=== PATIENT | female | born 1945 | race Caucasian/White ===

== ENCOUNTER 2016-05-29 13:35 | Outpatient (CLI) | payer MEDICARE, OTHER | END 2016-05-29 13:36 | disposition home or self-care (01) | DX: R05 Cough (principal) ==

== ENCOUNTER 2016-08-17 13:14 | Outpatient (CLI) | payer MEDICARE, OTHER | END 2016-08-17 13:15 | disposition home or self-care (01) | LOC: RT 13:14 | PROVIDERS: ATTEND Internal Medicine | DX: J45.909 Unspecified asthma, uncomplicated (principal) | CPT/HCPCS: 94010; 94664 ==

== ENCOUNTER 2017-11-25 11:47 | Outpatient (CLI) | payer MEDICARE, OTHER ==
--- NOTE | 2017-11-25 14:24 | XRAY Report ---
Reason: SHORTNESS OF BREATH Procedure Date: 11/25/2017 Accession Number: [id number] / [id number] Procedure: XR - Chest 2 View X-Ray CPT Code: 16532 FULL RESULT: EXAM: CHEST RADIOGRAPHY EXAM DATE: 11/25/2017 01:38 PM. CLINICAL HISTORY: Increasing shortness of breath with a history of smoking. COMPARISON: Chest 2 view PA/lat 05/26/2014. TECHNIQUE: 2 views. FINDINGS: Lungs/Pleura: No focal opacities evident. No pleural effusion. No pneumothorax. Increased lung volumes. Mediastinum: Heart and mediastinal contours are unremarkable. Other: None. IMPRESSION: No acute cardiopulmonary abnormality. Increased lung volumes with flattening of diaphragms which can be seen with COPD. RADIA
== END 2017-11-25 11:48 | disposition home or self-care (01) ==
LOC: DI 11:47
PROVIDERS: ATTEND Nurse Practitioner Family
DX: R06.02 Shortness of breath (principal); I35.1 Nonrheumatic aortic (valve) insufficiency
CPT/HCPCS: 71046; 93306

== ENCOUNTER 2018-10-29 | Outpatient (CLI) | payer MEDICARE, OTHER | END 2018-10-29 12:13 | disposition home or self-care (01) | DX: Z79.899 Other long term (current) drug therapy (principal) | CPT/HCPCS: 36415; 80048 ==

== ENCOUNTER 2018-11-23 12:43 | Outpatient (CLI) | payer MEDICARE, OTHER ==
[2018-11-23 17:46] LABS: CALCIUM 9.2 mg/dL (8.5-10.3); CREATININE 0.8 mg/dL (0.4-1.0)
== END 2018-11-23 12:44 | disposition home or self-care (01) ==
LOC: LAB.S 12:43
PROVIDERS: ATTEND Internal Medicine Cardiovascular Disease
DX: I35.1 Nonrheumatic aortic (valve) insufficiency (principal); I10 Essential (primary) hypertension
CPT/HCPCS: 36415; 80048

== ENCOUNTER 2019-03-12 11:43 | Observation (INO) | payer MEDICARE, OTHER ==
[2019-03-12 12:09] LABS: BASOPHILS % (AUTO) 0.4 %; EOSINOPHILS # (AUTO) 0.1 10^3/uL (0.0-0.7); EOSINOPHILS % (AUTO) 1.6 %; HGB - HEMOGLOBIN 11.5 g/dL (12.0-16.0); LYMPHOCYTES # (AUTO) 2.1 10^3/uL (1.5-3.5); LYMPHOCYTES % (AUTO) 27.5 %; MEAN CORPUSCULAR HEMOGLOBIN 29.6 pg (27.0-31.0); MEAN CORPUSCULAR HGB CONC 32.4 g/dL (32.0-36.0); MEAN CORPUSCULAR VOLUME 91.3 fL (81.0-99.0); MEAN PLATELET VOLUME 9.5 fL (7.9-10.8); MONOCYTES # (AUTO) 0.8 10^3/uL (0.0-1.0); MONOCYTES % (AUTO) 10.3 %; NEUTROPHILS # (AUTO) 4.5 10^3/uL (1.5-6.6); NEUTROPHILS % (AUTO) 59.9 %; PLT - PLATELET COUNT 208 10^3/uL (130-450); RED BLOOD COUNT 3.89 10^6/uL (4.20-5.40); RED CELL DISTRIBUTION WIDTH 13.2 % (12.0-15.0); WHITE BLOOD COUNT 7.5 x10^3/uL (4.8-10.8)
[2019-03-12 12:22] LABS: ALBUMIN 4.3 g/dL (3.2-5.5); ALBUMIN/GLOBULIN RATIO 1.5 (1.0-2.2); BILIRUBIN,TOTAL 0.6 mg/dL (0.2-1.0); CALCIUM 9.3 mg/dL (8.5-10.3); TOTAL PROTEIN 7.1 g/dL (6.7-8.2)
--- NOTE | 2019-03-12 12:23 | CT Report ---
Reason: expressive aphasia Procedure Date: 03/12/2019 Accession Number: [id number] / [id number] Procedure: CT - Head W/O Stroke Protocol CPT Code: Final Report FULL RESULT: EXAM: CT HEAD EXAM DATE: 03/12/2019 12:05 PM. CLINICAL HISTORY: Expressive aphasia. COMPARISON: None. TECHNIQUE: Multiaxial CT images were obtained from the foramen magnum to the vertex. Reformats: Sagittal and coronal. IV contrast: None. In accordance with CT protocol optimization, one or more of the following dose reduction techniques were utilized for this exam: automated exposure control, adjustment of mA and/or KV based on patient size, or use of iterative reconstructive technique. FINDINGS: Parenchyma: No intraparenchymal hemorrhage. No evidence of mass, midline shift, or CT findings of acute infarction. Anguiano-white differentiation is distinct. Extraaxial Spaces: Normal for age. No subdural or epidural collections identified. Ventricles: Normal in size and position. Sinuses and Orbits: Imaged paranasal sinuses, orbits, and mastoids show no significant abnormality. Bones: No evidence of fracture or calvarial defect. Other: None. IMPRESSION: Normal head CT. RADIA The critical test notification system was initiated by Dr. Ladarius Harris at 12:19 PM on 03/12/2019. The above critical test findings were discussed with Tejinder Vernon by Dr. Ladarius Harris at 12:20 PM on 03/12/2019.
--- NOTE | 2019-03-12 12:25 | ED Physician Documentation ---
PD HPI FOCAL NEURO - Stated complaint Stated Complaint: POSSIBLE STROKE - Chief complaint Chief Complaint: Neuro - History obtained from History obtained from: Patient, Family - History of Present Illness Timing - onset: How many hours ago (2.5) Timing - duration: Hours (2.5) Timing - details: Gradual onset Severity of deficit: Mild Weakness: No: Face, Arm, Hand, Leg, Foot, Right, Left Numbness: Face (states entire face was numb today), Arm, Leg, Left Associated symptoms: Headache (states had a sharp headache earlier today.). No: Nausea / vomiting, Seizure, Syncope, Fall, Head injury, Chest pain, Neck pain, Back pain, Fever Baseline status: positive: A&OX3, ambulatory, indep Similar symptoms before: Diagnosis (states 2 TIA's in the past) Recently seen: Clinic (seen in clinic this am) - Additional information Additional information: took [employer] Review of Systems Ten Systems: 10 systems reviewed and negative Constitutional: denies: Fever, Chills Cardiac: denies: Chest pain / pressure Respiratory: denies: Cough GI: denies: Abdominal Pain, Nausea, Vomiting, Diarrhea Skin: denies: Rash Musculoskeletal: denies: Neck pain, Back pain Neurologic: reports: Confused (states confused earlier.) PD PAST MEDICAL HISTORY - Past Medical History Past Medical History: Yes Cardiovascular: Hypertension Neuro: TIA Musculoskeletal: Chronic back pain - Present Medications Home Medications: Ambulatory Orders Medication Instructions Recorded Confirmed Acetaminophen 500 mg PO TID PRN 03/12/19 03/12/19 Albuterol Sulfate [Albuterol 1 - 2 puffs PO Q4HR PRN 03/12/19 03/12/19 Sulfate Hfa] Citalopram [CeleXA] 20 mg PO DAILY 03/12/19 03/12/19 Hydrochlorothiazide 12.5 mg PO DAILY 03/12/19 03/12/19 Lisinopril 20 mg PO QPM 03/12/19 03/12/19 - Allergies Allergies/Adverse Reactions: Allergies Allergy/AdvReac Type Severity Reaction Status Date / Time hydrocodone Allergy Hives Verified 03/12/19 11:54 - Living Situation Living Situation: reports: With family Living Arrangement: reports: At home - Family History Family history: reports: Non contributory PD ED PE NORMAL - Vitals Vital signs reviewed: Yes - General General: Alert and oriented X 3, No acute distress, Well developed/nourished - HEENT HEENT: Atraumatic, PERRL, Ears normal, Moist mucous membranes - Neck Neck: Supple, no meningeal sign - Cardiac Cardiac: RRR, Strong equal pulses - Respiratory Respiratory: No respiratory distress, Clear bilaterally - Abdomen Abdomen: Soft, Non tender, Non distended - Back Back: No spinal TTP - Derm Derm: Warm and dry - Extremities Extremities: No edema - Neuro Neuro: Alert and oriented X 3, No motor deficit, Other (Mild decreased sensation on the left arm, left leg and left half of the face. Cranial nerves other than baker intact. Mild expressive aphasia) Eye Opening: Spontaneous Motor: Obeys Commands Verbal: Oriented GCS Score: 15 - Psych Psych: Normal mood, Normal affect NIHSS - Time Time: 12:01 - Level of Consciousness Level of consciousness: (0) Alert, Keenly responsive LOC Questions: (0) Answers both Q's correct LOC Commands: (0) Performs both correctly - Gaze Best Gaze: (0) Normal - Visual Visual: (0) No loss - Facial Palsy Facial Palsy: (0) Normal, symmetrical movement - Motor Arms (both separate) Motor Arm (right): (0) No drift Motor Arm (left): (0) No drift - Motor Legs (both separate) Motor Leg (right): (0) No drift Motor Leg (left): (0) No drift - Limb Ataxia Limb Ataxia: (0) Absent - Sensory Sensory: (1) [id number] loss - Best Language Best Language: (1) [id number] - Dysarthria Dysarthria: (0) Normal - Extinction and Inattention (formally neg Extinction and inattention: (0) No abnormality - Total Score/Results Total Score/Result: 2 Results - Vitals Vitals: Vital Signs - 24 hr 03/12/19 03/12/19 03/12/19 11:54 11:57 12:34 Temperature 36.8 C Heart Rate 74 75 72 Respiratory 24 14 15 Rate Blood Pressure 196/84 H 206/78 H 178/68 H O2 Saturation 98 100 99 Oxygen O2 Source Room air - EKG (time done) 1157 Rate: Rate (enter#) (70) Rhythm: NSR Mimbres: Normal Intervals: Normal IN QRS: Normal Ischemia: Normal ST segments - Labs Labs: Laboratory Tests 03/12/19 03/12/19 11:50 11:50 WBC 7.5 RBC 3.89 L Hgb 11.5 L Hct 35.5 L MCV 91.3 MCH 29.6 MCHC 32.4 RDW 13.2 Plt Count 208 MPV 9.5 Neut # (Auto) 4.5 Lymph # (Auto) 2.1 Emanuel # (Auto) 0.8 Eos # (Auto) 0.1 Baso # (Auto) 0.0 Absolute Nucleated RBC 0.00 Nucleated RBC % 0.0 Sodium 127 L Potassium 4.0 Chloride 91 L Carbon Dioxide 27 Anion Gap 9.0 BUN 21 H Creatinine 1.0 Estimated GFR (MDRD) 54 L Glucose 99 Calcium 9.3 Total Bilirubin 0.6 AST 29 ALT 36 Alkaline Phosphatase 55 Total Protein 7.1 Albumin 4.3 Globulin 2.8 Albumin/Globulin Ratio 1.5 Lipase 46 - Rads (name of study) head CT Radiology: Prelim report reviewed, EMP read contemporaneously, See rad report (No acute intracranial abnormality) PD MEDICAL DECISION MAKING - ED course Complexity details: reviewed results, re-evaluated patient, considered differential, d/w patient, d/w family, d/w farm service consultant ED course: 73-year-old female presents to the emergency department what appears to be a TIA. Symptoms resolved in the emergency department. No acute findings on head CT or laboratory testing. Discussed the case with Dr. Guerrero, hospitalist who accepts. This document was made in part using voice recognition software. While efforts are made to proofread this document, sound alike and grammatical errors may occur. - TPA CVA checklist Inclusion crititeria: positive: Sig neuro deficit, CT no bleed, Onset know < 4.5 hr Relative contraindications: positive: Too mild, Rapid improvement Departure - Departure Disposition: ED Place in Observation Clinical Impression: TIA (transient ischemic attack), Hyponatremia Hypertension Qualifiers: Hypertension type: unspecified Qualified Code(s): I10 - Essential (primary) hypertension Condition: Stable Discharge Date/Time: 03/12/19 13:37
[2019-03-12] MEDS ORDERED: SODIUM CHLORIDE 0.9% 1,000 ML IV ONE ×2 (12:32)
[2019-03-12] MEDS ORDERED: LABETALOL 20 MG/4 ML SYRINGE IVP STA (12:33)
[2019-03-12] MEDS ORDERED: ONDANSETRON 4 MG/2 ML VIAL IVP PRN (13:04)
[2019-03-12] MEDS ORDERED: SODIUM CHLORIDE FLUSH 0.9% 10 ML SYRINGE IVP PRN (13:04)
[2019-03-12 13:16] LABS: BILIRUBIN,URINE NEGATIVE (NEGATIVE); GLUCOSE, URINE (UA) NEGATIVE (NEGATIVE); KETONES,URINE (UA) NEGATIVE (NEGATIVE); LEUKOCYTE ESTERASE, URINE NEGATIVE (NEGATIVE); NITRITE,URINE NEGATIVE (NEGATIVE); OCCULT BLOOD,URINE TRACE-INTA (NEGATIVE); PH,URINE 6.5 PH (5.0-7.5); PROTEIN,URINE NEGATIVE (NEGATIVE); UROBILINOGEN,URINE 0.2 (NORMAL) E.U./dL (NORMAL)
[2019-03-12 13:24] LABS: CLARITY,URINE CLEAR (CLEAR)
[2019-03-12] MEDS ORDERED: hydrALAZINE INJ 20 MG/ML VIAL IVP PRN (13:39)
[2019-03-12] MEDS ORDERED: ALBUTEROL NEB 2.5 MG/3 ML INH PRN (13:42)
[2019-03-12] MEDS: SODIUM CHLORIDE 0.9% 1,000 ML IV SCH (14:11)
--- NOTE | 2019-03-12 15:14 | HISTORY & PHYSICAL EXAMINATION ---
Chief Complaint - Chief Complaint Chief Complaint: TIA History of Present Illness - History of Present Illness HPI Comment/Other: Ms. Echeverria is a 73-yrs old female with a PMH significant for Hypertension, COPD, Sleep apnea, TIA, Migraines, Seizure disorder, Incontinence, Frequency, Depression, Anxiety, Osteoarthritis, Fatigue, Chronic back pain, who present ER complain of numbness on whole face, and headache, and slurred speech. Pt report she's face, lips started to have numbness around 0945 today morning, and report she couldn't find the right words, people, places,names, then she had a bad headache. then her gave a baby aspirin. She report her symptoms remained about 30 minutes then these symptoms waned away. She denies other focal n eurological deficits. she denies unilateral extremities weakness, facial drip, vision change. she denies chest pain, fever, chill, shortness of breath. pt report she had twice of TIA before which happened on her early 50 yrs and 60 yrs old respectively. Pt's CT of head is unremarkable. Route lab test in ER reveals sodium at 127. pt report she took home meds HCTZ. pt is admitted for TIA History - Past Medical History Cardiovascular: reports: Hypertension Respiratory: reports: COPD, Sleep apnea Neuro: reports: TIA, Migraines, Seizure disorder Endocrine/Autoimmune: reports: None : reports: Incontinence, Frequency Psych: reports: Depression, Anxiety Musculoskeletal: reports: Osteoarthritis, Fatigue, Chronic back pain Derm: reports: None - Past Surgical History Ortho: reports: Knee replacement - Family & Social History Family History: Mother: , Cancer, Father: , COPD/Emphysema Family History Comment/Other: pt report her mother from pancreatic cancer. her father from heart attack and lung disease. she had one child who is health Living arrangement: At home Living Situation: With family Social History Notes: she report she quit cigarette smoking about 20 yrs ago. she denies any issue for alcohol and drug. 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 she is living at [facility]. - POLST POLST Status: Full Code Meds/Allgy - Home Medications Home Medications: Ambulatory Orders Medication Instructions Recorded Confirmed Albuterol Sulfate [Albuterol 1 - 2 puffs PO Q4HR PRN 03/12/19 03/12/19 Sulfate Hfa] Citalopram [CeleXA] 20 mg PO DAILY 03/12/19 03/12/19 Hydrochlorothiazide 12.5 mg PO DAILY 03/12/19 03/12/19 Lisinopril 20 mg PO QPM 03/12/19 03/12/19 - Allergies Allergies/Adverse Reactions: Allergies Allergy/AdvReac Type Severity Reaction Status Date / Time hydrocodone Allergy Hives Verified 03/12/19 11:54 Review of Systems - Constitutional Constitutional: denies: Fatigue, Fever, Chills, Malaise, Weakness, Poor appetite, Diaphoresis, Night sweats - Eyes Eyes: denies: Pain, Irritation, Amaurosis, Blurred vision, Spots in vision, Field loss, Vision loss, Dipolpia - Ears, Nose & Throat Ears, Nose & Throat: denies: Ear pain, Hearing loss, Hearing aids, Tinnitus, Vertigo, Nasal pain, Nasal discharge, Nosebleeds, Nasal obstruction, Nasal congestion, Postnasal drainage, Dentures, Sore throat, Hoarseness, Mouth lesions, Bleeding gums - Cardiovascular Cariovascular: denies: Irregular heart rate, Palpitations, Chest pain, Edema, Lightheadedness, Syncope, Exertional dyspnea, Decr. exercise tolerance - Respiratory Respiratory: denies: Cough, Sputum production, Wheezing, Snoring, Hemoptysis, Orthopnea, SOB at rest, SOB with exertion - Gastrointestinal Gastrointestinal: denies: Abdominal pain, Abdominal distention, Constipation, Diarrhea, Change in bowel habits, Rectal bleeding, Black stools, Bloody stools, Nausea, Vomiting, Bile emesis, Nikolas blood emesis, Coffee grounds emesis, Refl ux/heartburn - Genitourinary Genitourinary: denies: Dysuria, Frequency, Urgency, Hematuria, Incontinence, Flank pain, Nocturia, Urethral discharge - Musculoskeletal Musculoskeletal: denies: Muscle pain, Back pain, Muscle aches, Stiffness, Limited range of motion, Muscle weakness, Gout, Joint pain - Integumentary Integumentary: denies: Rash, Pruritis, Lesions, Dryness, Lumps, Pigment changes, Nail changes - Neurological Neurological: reports: General weakness, Headache, Numbness, Memory problems. denies: Focal weakness, Dizziness, Pre-existing deficit, Abnormal gait, Seizures, Incoordination, Slurred speech - Psychiatric Psychiatric: denies: Depression, Anxiety, Suicidal, Delusions, Hallucinations, Homicidal - Endocrine Endocrine: denies: Polyuria, Polydypsia, Polyphagia, Intolerance to cold - Hematologic/Lymphatic Hematologic/Lymphatic: denies: Anemia, Bruising, Petechiae, Blood clots, Lymphadenopathy, Bleeding tendencies Exam - Vital Signs Reviewed Vital Signs: Yes Vital Signs: Vital Signs x48h Temp Pulse Pulse Resp BP BP Pulse Ox 03/12/19 13:50 36.4 C L 76 16 177/63 H 100 03/12/19 13:35 73 18 163/69 H 100 03/12/19 13:11 75 20 175/70 H 03/12/19 12:34 72 15 178/68 H 99 03/12/19 11:57 75 14 206/78 H 100 03/12/19 11:54 36.8 C 74 24 196/84 H 98 - Physical Exam General Appearance: positive: No acute distress, Alert. negative: Lethargic Eyes Bilateral: positive: Normal inspection, PERRL, EOMI. negative: No lid inflammation ENT: positive: ENT inspection nml, Pharynx nml, No signs of dehydration. negative: Purulent nasal drainage Neck: positive: Nml inspection, Thyroid nml, No JVD, Trachea midline. negative: Thyromegaly, Lymphadenopathy (R), Lymphadenopathy (L), Stiff neck, Tracheal deviation Respiratory: positive: Chest non-tender, No respiratory distress, Breath sounds nml. negative: Wheezes, Rales, Rhonchi Cardiovascular: positive: Regular rate & rhythm, No gallop, Systolic murmur. negative: Irregularly irregular, Extrasystoles, Tachycardia, Bradycardia, JVD present, Diastolic murmur Peripheral Pulses: positive: 2+ Abdomen: positive: Non-tender, No organomegaly, Nml bowel sounds, No distention. negative: Tenderness, Guarding, Rebound Back: positive: Nml inspection. negative: CVA tenderness (R), CVA tenderness (L) Skin: positive: Color nml, No rash, Warm, Dry. negative: Cyanosis, Diaphoresis, Pallor Extremities: positive: Non-tender, Full ROM, Nml appearance. negative: Calf tenderness, Zeynep's sign/cords Neurologic/Psychiatric: positive: Oriented x3, Motor nml, Sensation nml. negative: Weakness, Sensory loss, Facial droop, Slurred/abnml speech, Depressed mood/affect Sepsis Event Note (H) - Evaluation Current Stage of Sepsis: Ruled out Conclusion/Plan - Problem List (1) TIA (transient ischemic attack) Conclusion/Plan: pt had twice TIA before. today she report she present these numbness, difficult to find words and headache, concern of TIA. CT of head is unremarkable. order MRI, ECHO, and US of carotid order lipid panel. pt took aspirin at home, start lower dosage Aspirin. since pt's symptoms are totally resolved. PT/TO did not order now neuro check (2) Hyponatremia Conclusion/Plan: pt's Na is 127 now. it is likely from pt's home HCTZ side effect. hold HCTZ start IVF of NS, lab monitor (3) Hypertension Conclusion/Plan: pt has hx of HTN, she took HCTZ and Lisinopril. hold home BP meds for 24 hours since pt has TIA. add hydralazine PRN Qualifiers: Hypertension type: unspecified Qualified Code(s): I10 - Essential (primary) hypertension (4) History of COPD Conclusion/Plan: pt has no respiratory distress now. pt has INH of albuterol at home. PRN of albuterol (5) Depression Conclusion/Plan: stable. resume home meds Celexa (6) Full code status Conclusion/Plan: pt request full code status - Lab Results Fish Bones: 03/12/19 11:50 03/12/19 11:50 Core Measures - Anticipated LOS I expect patient to be DC'd or transferred within 96 hours.: Yes - DVT/VTE - Prophylaxis VTE/DVT Device ordered at admit?: Yes VTE/DVT Prophylaxis med ordered at admit?: Yes
[2019-03-12] MEDS ORDERED: LEVALBUTEROL 1.25 MG/3 ML NEB INH PRN (15:23)
[2019-03-12] MEDS ORDERED: ASPIRIN CHEW 81 MG TABLET PO SCH (15:23)
[2019-03-12] MEDS: SODIUM CHLORIDE FLUSH 0.9% 10 ML SYRINGE IVP SCH (16:26)
--- NOTE | 2019-03-12 16:33 | PHARMACY PROGRESS NOTE ---
- Best Possible Medication History Admit Date and Time: 03/12/19 2708 Processed by: Pharmacy Medication History completed: Yes Patient Interview: Completed Secondary Source(s): Spouse/Significant other, [facility] As the person ultimately responsible for medication therapy, providers are able to order a medication from an existing home medication list in [facility] via the "Reconcile Routine" prior to Confirmation of that medication by fire support man. Such practice is discouraged except when the physician, in their clinical judgment, deems that a medical need exists for a medication without regard to pr evious use.
[2019-03-12] MEDS: ACETAMINOPHEN 325 MG TABLET PO PRN (20:21)
--- NOTE | 2019-03-12 20:27 | MRI Report ---
Reason: TIA/CVA. Expressive aphasia. Left side numbness. Procedure Date: 03/12/2019 Accession Number: [id number] / [id number] Procedure: MRI - Brain W/O CPT Code: Final Report FULL RESULT: EXAM: MRI BRAIN WITHOUT CONTRAST EXAM DATE: 03/12/2019 07:46 PM. CLINICAL HISTORY: 73-year-old woman with left-sided numbness and expressive aphasia. COMPARISON: None. TECHNIQUE: Multiplanar, multisequence T1-weighted and fluid-sensitive MR sequences of the brain were performed. Sequences optimized for routine evaluation. Other: None. IV Contrast: None. FINDINGS: Parenchyma: No evidence of acute infarct on diffusion weighted sequence. The parenchyma demonstrates minimal burden of nonspecific FLAIR hyperintensities in the deep cerebral and periventricular white matter, less than commonly seen in this age group. No evidence of prior hemorrhage on susceptibility weighted sequence. Pituitary: Unremarkable. Ventricles and Extra-axial Spaces: Ventricles are symmetric and normal in size for age. Extra-axial spaces are unremarkable. Orbits: Unremarkable. Sinuses: Paranasal sinuses and mastoid air cells are clear. Major Vascular Flow Voids: Intact. IMPRESSION: 1. No acute intracranial abnormality. Specifically, no evidence of acute infarct, hemorrhage, or mass lesion. RADIA
[2019-03-12] MEDS: traMADol 50 MG TABLET PO PRN (22:17)
--- NOTE | 2019-03-12 23:02 | Ultrasound Report ---
Reason: TIA. Procedure Date: 03/12/2019 Accession Number: [id number] / [id number] Procedure: US - Carotid Doppler Complete CPT Code: Final Report FULL RESULT: EXAM: BILATERAL CAROTID AND VERTEBRAL ARTERY DUPLEX DOPPLER ULTRASOUND: EXAM DATE: 03/12/2019 09:26 PM CLINICAL HISTORY: Transient ischemic attack. COMPARISON: None. TECHNIQUE: Grayscale imaging, color Doppler, and duplex spectral Doppler were used to evaluate the carotid and vertebral arteries bilaterally. Static images were obtained. FINDINGS: Borderline mildly elevated velocities in the proximal and mid right internal carotid artery compatible with 50-69% stenosis. Bilateral areas of irregular calcified plaque in the common carotid and internal carotid arteries, right more than left. Normal antegrade flow is present in bilateral vertebral arteries. VELOCITIES (cm/sec): Right CCA mid: PSV 87 cm/sec CCA dist: PSV 89 cm/sec ICA prox: PSV 125 cm/sec, EDV 23 cm/sec ICA mid: PSV 136 cm/sec, EDV 30 cm/sec ICA dist: PSV 73 cm/sec, EDV 18 cm/sec ECA: PSV 85 cm/sec Vert: PSV 75 cm/sec ICA/CCA: 1.5 Left CCA mid: PSV 76 cm/sec CCA dist: PSV 85 cm/sec ICA prox: PSV 71 cm/sec, EDV 14 cm/sec ICA mid: PSV 115 cm/sec, EDV 23 cm/sec ICA dist: PSV 56 cm/sec, EDV 16 cm/sec ECA: PSV 119 cm/sec Vert: PSV 85 cm/sec ICA/CCA: 1.4 ICA diameter stenosis: Right: 50-69% by velocity and <70% by NASCET criteria. Left: <50% by velocity and <70% by NASCET criteria. IMPRESSION: 1. Mild bilateral carotid artery plaquing, right more than left. 2. Mildly elevated velocities in the proximal and mid right internal carotid artery compatible with 50-69% stenoses. 3. In the left carotid artery there are no elevated carotid artery velocities to suggest hemodynamically significant stenosis. 4. Normal antegrade flow is present in bilateral vertebral arteries. General Recommendations: Stenosis =50% ICA - Follow-up ultrasound 6-12 months Stenosis <50% ICA - High Risk Patient with plaque - Follow-up ultrasound 1-2 years Normal Study but High Risk Patient - Follow-up ultrasound 3-5 years Management recommendations and diagnostic criteria are based on current IAC endorsed standards in Carotid Artery Stenosis: Grayscale and Doppler Ultrasound Diagnosis. Validated velocity measurements with angiographic measurements and velocity criteria are extrapolated from diameter data as defined by the Society of Radiologists in Ultrasound Consensus Conference Radiology 2003; 229;340-346. RADIA
[2019-03-13] MEDS: SODIUM CHLORIDE 0.9% 1,000 ML IV SCH ×2 (00:40→10:11)
[2019-03-13] MEDS: SODIUM CHLORIDE FLUSH 0.9% 10 ML SYRINGE IVP SCH ×2 (00:40→08:21)
[2019-03-13] MEDS: traMADol 50 MG TABLET PO PRN ×2 (04:54→10:11)
[2019-03-13 05:05] LABS: BASOPHILS % (AUTO) 0.5 %; EOSINOPHILS # (AUTO) 0.2 10^3/uL (0.0-0.7); EOSINOPHILS % (AUTO) 2.7 %; HGB - HEMOGLOBIN 10.7 g/dL (12.0-16.0); LYMPHOCYTES # (AUTO) 1.5 10^3/uL (1.5-3.5); LYMPHOCYTES % (AUTO) 27.1 %; MEAN CORPUSCULAR HEMOGLOBIN 30.1 pg (27.0-31.0); MEAN CORPUSCULAR HGB CONC 32.5 g/dL (32.0-36.0); MEAN CORPUSCULAR VOLUME 92.4 fL (81.0-99.0); MEAN PLATELET VOLUME 9.5 fL (7.9-10.8); MONOCYTES # (AUTO) 0.6 10^3/uL (0.0-1.0); MONOCYTES % (AUTO) 10.6 %; NEUTROPHILS # (AUTO) 3.3 10^3/uL (1.5-6.6); NEUTROPHILS % (AUTO) 58.7 %; PLT - PLATELET COUNT 176 10^3/uL (130-450); RED BLOOD COUNT 3.56 10^6/uL (4.20-5.40); RED CELL DISTRIBUTION WIDTH 13.2 % (12.0-15.0); WHITE BLOOD COUNT 5.5 x10^3/uL (4.8-10.8)
[2019-03-13 05:15] LABS: CALCIUM 8.5 mg/dL (8.5-10.3); CREATININE 0.8 mg/dL (0.4-1.0)
[2019-03-13 05:25] LABS: CHOL/HDL RATIO 2.7 (<4.4); CHOLESTEROL 201 mg/dL; HDL CHOLESTEROL 75 mg/dL
[2019-03-13] MEDS: ACETAMINOPHEN 325 MG TABLET PO PRN (08:22)
[2019-03-13 08:42] VITALS: BP 138/62
--- NOTE | 2019-03-13 08:47 | Discharge Plan ---
Discharge Plan Problem Reviewed?: Yes Disposition: Home, Self Care Condition: Stable Diet: Regular Activity Restrictions: Activity as Tolerated Shower Restrictions: No Driving Restrictions: No Health Concerns: You presented to our emergency room with complaints of numbness of the whole face, a diffuse generalized headache, and slurred speech. You have had previous transient ischemic attacks in the past. You could not find the right words, were not able to remember people, places, names. We felt you were having a transient ischemic attack and were placed in observation. Plan of Treatment: 1. You were given an aspirin. And your blood pressure and heart rate were monitored. Overnight your international tax manager did not show any thing that could cause your problem. You were normal sinus rhythm. 2. An echocardiogram/ultrasound of your heart was done. You have moderate aortic regurgitation. Mild mitral regurgitation. Mild tricuspid regurgitation. But otherwise your heart muscles were normal. We were looking for small blood clots in your heart and none were found. 3. Ultrasound of your carotid arteries, the arteries in your neck, were done to make sure they were open. And there was no stenosis. You do have some irregular calcification that is normal and considered part of aging. 4. CT scan of your head showed no changes other than aging. 5. Brain MRI was also unremarkable and showed only changes of aging. Care Goals: 1. Please follow-up with your primary care provider for follow-up of this visit. 2. You asked if your spinal stenosis in your neck was the cause of this, and while it can give you a diffuse generalized headache, it should not give you whole face numbness. We do not think that your neck pathology causes. Assessment: Patient and understand plan of treatment, and will follow through with her primary care provider. No Smoking: If you smoke, Please STOP! Call for help.
[2019-03-13] MEDS ORDERED: ENOXAPARIN 40 MG/0.4 ML SYRINGE SUBQ SCH (09:00)
[2019-03-13] MEDS ORDERED: ASPIRIN CHEW 81 MG TABLET PO SCH ×2 (09:00)
[2019-03-13] MEDS ORDERED: CITALOPRAM 10 MG TABLET PO SCH (09:00)
--- NOTE | 2019-03-13 10:47 | DISCHARGE SUMMARY ---
"Discharge Summary Admit Date: 03/12/19 Discharge Date: 03/13/19 Discharging Provider: Rachel Bolton MD Code Status: Attempt Resuscitation Condition at Discharge: Stable Discharge Disposition: 01 Home, Self Care - DIAGNOSES Discharge Diagnoses with Status of Each Condition: Abnormal neurological symptom, R29.818 Hyponatremia Essential hypertension History of COPD Depressive disorder Cervical spine stenosis - HPI History of Present Illness: Ms. Echeverria is a 73-yrs old female with a PMH significant for Hypertension, COPD, Sleep apnea, TIA, Migraines, Seizure disorder, Incontinence, Frequency, Depression, Anxiety, Osteoarthritis, Fatigue, Chronic back pain, who present ER complain of numbness on whole face, and headache, and slurred speech. Pt report she's face, lips started to have numbness around 0945 today morning, and report she couldn't find the right words, people, places,names, then she had a bad headache. then her gave a baby aspirin. She report her symptoms remained about 30 minutes then these symptoms waned away. She denies other focal neurological deficits. she denies unilateral extremities weakness, facial drip, vision change. she denies chest pain, fever, chill, shortness of breath. pt report she had twice of TIA before which happened on her early 50 yrs and 60 yrs old respectively. Pt's CT of head is unremarkable. Route lab test in ER reveals sodium at 127. pt report she took home meds HCTZ. pt is admitted for TIA She is currently undergoing evaluation for severe cervical neck pain. She appears to be describing cervical spine stenosis. It is giving her numbness and paresthesias down her arms. Spasm in her neck is so severe that she is unable to move her head very easily. Turning her neck hurts tremendously. History - Past Medical History Cardiovascular: reports: Hypertension Respiratory: reports: COPD, Sleep apnea Neuro: reports: TIA, Migraines, Seizure disorder Endocrine/Autoimmune: reports: None : reports: Incontinence, Frequency Psych: reports: Depression, Anxiety Musculoskeletal: reports: Osteoarthritis, Fatigue, Chronic back pain - CONSULTS | PROCEDURES Procedures: 1. Echocardiogram, preliminary report, final must be reviewed. Overall left ventricular systolic function normal with ejection fraction 60 to 65%. Mild increased left atrial volume index. Moderate aortic regurgitation. Minimal tricuspid and mitral regurgitation. 2. Head CT without contrast is essentially normal other than for signs of aging 3. Carotid Dopplers have a right internal carotid artery velocity change of 50 to 69% stenosis. Bilateral areas of irregular calcified plaque in the common carotid and internal carotid arteries. Right more than left. 4. MRI of head has no acute intracranial abnormality. No evidence of acute inf arct, hemorrhage, or mass lesion. She has minimal burden of nonspecific FLAIR hyperintensities less than commonly seen in this age group. - HOSPITAL COURSE Hospital Course: She was placed under observation for possible TIA. Her symptoms had essentially resolved by the time she came to the emergency room. Overnight telemetry showed normal sinus rhythm. Further radiologic studies for TIA versus stroke were done and are as above. She has had no further symptoms. Her main complaint is her neck. She asked if her neck pain could be responsible for her face numbness, inability to find words. And I explained that it was most likely not. Her neck pain is significant enough that this patient sits with rigid truncal stability. She moves her entire trunk to the right or the left to be able to turn her head to the right of the left. Turning her head to the right or left or bending her chin down to her neck hurts tremendously. She is currently being evaluated for spinal stenosis. At discharge temperature is 36.6 pulse is 87 blood pressure 138/62 respirations 16 and she is 96% on room air. She is 5 feet 3 inches tall and weighs 56 kg. She appears to be a thin alert white female who looks her stated age. Normal, lucid conversation. is at the bedside. Neck is stiff with pain and muscle spasm of the sternocleidomastoid down along the trapezius. It hurts to touch these muscles. But there is no bruits. No JVD. Lungs are clear to auscultation and percussion. PMI is normally placed. She has a regular rate and rhythm. Abdomen is soft, nontender. Extremities are thin without edema. She has no neurological deficits of strength, tremors, weakness present. Headache is not present at this time. There is no blurred vision. Speech is lucid and normal. She is asked to follow-up with her primary care provider. She asked what she can do to reduce her risk of stroke. Her risk are that of high blood pressure, hyperlipidemia. She does not have diabetes, smoke. I have asked her to get a fasting lipid panel with her PCP. Cholesterol done during her stay showed a triglyceride of 35, cholesterol 201. LDL and VLDL are not reportable. HDL is 75. Her sodium has risen to 134 at discharge. She may need to change her m edication from hydrochlorothiazide.Otherwise blood pressure is controlled. - ALLERGIES Allergies/Adverse Reactions: Allergies Allergy/AdvReac Type Severity Reaction Status Date / Time hydrocodone Allergy Hives Verified 03/12/19 11:54 - MEDICATIONS Home Medications: Ambulatory Orders Medication Instructions Recorded Confirmed Acetaminophen 500 mg PO TID PRN 03/12/19 03/12/19 Albuterol Sulfate [Albuterol 1 - 2 puffs PO Q4HR PRN 03/12/19 03/12/19 Sulfate Hfa] Citalopram [CeleXA] 20 mg PO DAILY 03/12/19 03/12/19 Hydrochlorothiazide 12.5 mg PO DAILY 03/12/19 03/12/19 Lisinopril 20 mg PO QPM 03/12/19 03/12/19 - LABS Result Diagrams: 03/13/19 04:45 03/13/19 04:45 - SEPSIS Current Stage of Sepsis: Ruled out"
--- NOTE | 2019-03-13 10:58 | PROVIDER PROGRESS NOTE ---
Objective - Vital Signs/Intake & Output Vital Signs: Vital Signs x48h Temp Pulse Resp BP Pulse Ox 03/13/19 08:38 36.6 C 87 16 138/62 H 96 03/13/19 05:00 36.5 C 85 18 138/57 H 95 Intake & Output: Intake & Output 03/10/19 03/11/19 03/12/19 03/13/19 23:59 23:59 23:59 23:59 Intake Total 1240 2623.3 Balance 1240 2623.3 - Lab Results Fish Bones: 03/13/19 04:45 03/13/19 04:45 Other Labs: Lab Results x24hrs 03/13/19 03/13/19 03/13/19 Range/Units 04:45 04:45 04:45 WBC 5.5 (4.8-10.8) x10^3/uL RBC 3.56 L (4.20-5.40) 10^6/uL Hgb 10.7 L (12.0-16.0) g/dL Hct 32.9 L (37.0-47.0) % MCV 92.4 (81.0-99.0) fL MCH 30.1 (27.0-31.0) pg MCHC 32.5 (32.0-36.0) g/dL RDW 13.2 (12.0-15.0) % Plt Count 176 (130-450) 10^3/uL MPV 9.5 (7.9-10.8) fL Neut # (Auto) 3.3 (1.5-6.6) 10^3/uL Lymph # (Auto) 1.5 (1.5-3.5) 10^3/uL [place] # (Auto) 0.6 (0.0-1.0) 10^3/uL Eos # (Auto) 0.2 (0.0-0.7) 10^3/uL Baso # (Auto) 0.0 (0.0-0.1) 10^3/uL Absolute Nucleated RBC 0.00 x10^3/uL Nucleated RBC % 0.0 /100WBC Sodium 134 L (135-145) mmol/L Potassium 4.3 (3.5-5.0) mmol/L Chloride 102 (101-111) mmol/L Carbon Dioxide 23 (21-32) mmol/L Anion Gap 9.0 (6-13) BUN 15 (6-20) mg/dL Creatinine 0.8 (0.4-1.0) mg/dL Estimated GFR (MDRD) 70 L (>89) Glucose 93 (70-100) mg/dL Calcium 8.5 (8.5-10.3) mg/dL Magnesium 2.0 (1.7-2.8) mg/dL Total Bilirubin (0.2-1.0) mg/dL AST (10-42) IU/L ALT (10-60) IU/L Alkaline Phosphatase (42-121) IU/L Total Protein (6.7-8.2) g/dL Albumin (3.2-5.5) g/dL Globulin (2.1-4.2) g/dL Albumin/Globulin Ratio (1.0-2.2) Triglycerides 35 ( - 149) mg/dL Cholesterol 201 H ( - 199) mg/dL LDL Cholesterol, Calc Not Reportable VLDL Cholesterol Not Reportable HDL Cholesterol 75 (60 - ) mg/dL LDL/HDL Ratio Not Reportable Cholesterol/HDL Ratio 2.7 (<4.4) Lipase (22-51) U/L Urine Color Urine Clarity (CLEAR) Urine pH (5.0-7.5) PH Ur Specific [place] (1.002-1.030) Urine Protein (NEGATIVE) mg/dL Urine Glucose (UA) (NEGATIVE) mg/dL Urine Ketones (NEGATIVE) mg/dL Urine Occult Blood (NEGATIVE) Urine Nitrite (NEGATIVE) Urine Bilirubin (NEGATIVE) Urine Urobilinogen (NORMAL) E.U./dL Ur Leukocyte Esterase (NEGATIVE) Ur Microscopic Review Urine Culture Comments 03/12/19 03/12/19 03/12/19 Range/Units 13:08 11:50 11:50 WBC 7.5 (4.8-10.8) x10^3/uL RBC 3.89 L (4.20-5.40) 10^6/uL Hgb 11.5 L (12.0-16.0) g/dL Hct 35.5 L (37.0-47.0) % MCV 91.3 (81.0-99.0) fL MCH 29.6 (27.0-31.0) pg MCHC 32.4 (32.0-36.0) g/dL RDW 13.2 (12.0-15.0) % Plt Count 208 (130-450) 10^3/uL MPV 9.5 (7.9-10.8) fL Neut # (Auto) 4.5 (1.5-6.6) 10^3/uL Lymph # (Auto) 2.1 (1.5-3.5) 10^3/uL [place] # (Auto) 0.8 (0.0-1.0) 10^3/uL Eos # (Auto) 0.1 (0.0-0.7) 10^3/uL Baso # (Auto) 0.0 (0.0-0.1) 10^3/uL Absolute Nucleated RBC 0.00 x10^3/uL Nucleated RBC % 0.0 /100WBC Sodium 127 L (135-145) mmol/L Potassium 4.0 (3.5-5.0) mmol/L Chloride 91 L (101-111) mmol/L Carbon Dioxide 27 (21-32) mmol/L Anion Gap 9.0 (6-13) BUN 21 H (6-20) mg/dL Creatinine 1.0 (0.4-1.0) mg/dL Estimated GFR (MDRD) 54 L (>89) Glucose 99 (70-100) mg/dL Calcium 9.3 (8.5-10.3) mg/dL Magnesium (1.7-2.8) mg/dL Total Bilirubin 0.6 (0.2-1.0) mg/dL AST 29 (10-42) IU/L ALT 36 (10-60) IU/L Alkaline Phosphatase 55 (42-121) IU/L Total Protein 7.1 (6.7-8.2) g/dL Albumin 4.3 (3.2-5.5) g/dL Globulin 2.8 (2.1-4.2) g/dL Albumin/Globulin Ratio 1.5 (1.0-2.2) Triglycerides ( - 149) mg/dL Cholesterol ( - 199) mg/dL LDL Cholesterol, Calc VLDL Cholesterol HDL Cholesterol (60 - ) mg/dL LDL/HDL Ratio Cholesterol/HDL Ratio (<4.4) Lipase 46 (22-51) U/L Urine Color YELLOW Urine Clarity CLEAR (CLEAR) Urine pH 6.5 (5.0-7.5) PH Ur Specific [place] 1.010 (1.002-1.030) Urine Protein NEGATIVE (NEGATIVE) mg/dL Urine Glucose (UA) NEGATIVE (NEGATIVE) mg/dL Urine Ketones NEGATIVE (NEGATIVE) mg/dL Urine Occult Blood [place] (NEGATIVE) Urine Nitrite NEGATIVE (NEGATIVE) Urine Bilirubin NEGATIVE (NEGATIVE) Urine Urobilinogen 0.2 (NORMAL) (NORMAL) E.U./dL Ur Leukocyte Esterase NEGATIVE (NEGATIVE) Ur Microscopic Review NOT INDICATED Urine Culture Comments NOT INDICATED Sepsis Event Note (H) - Evaluation Current Stage of Sepsis: Ruled out
== END 2019-03-13 10:33 | disposition home or self-care (01) ==
LOC: ED 11:43 → MS2 13:04
PROVIDERS: ADMIT Nurse Practitioner Gerontology; ATTEND Specialist
DX: R20.0 Anesthesia of skin (principal); R51 Headache; R41.0 Disorientation, unspecified; R47.01 Aphasia; R47.81 Slurred speech; E87.1 Hypo-osmolality and hyponatremia; I11.9 Hypertensive heart disease without heart failure; I35.1 Nonrheumatic aortic (valve) insufficiency; J44.9 Chronic obstructive pulmonary disease, unspecified; F32.9 Major depressive disorder, single episode, unspecified; M48.02 Spinal stenosis, cervical region; M62.830 Muscle spasm of back; E78.5 Hyperlipidemia, unspecified; G47.30 Sleep apnea, unspecified; Z86.69 Personal history of other diseases of the nervous system and sense organs; Z79.899 Other long term (current) drug therapy; Z86.73 Personal history of transient ischemic attack (TIA), and cerebral infarction without residual deficits; Z87.891 Personal history of nicotine dependence
CPT/HCPCS: 36415; 70450; 70551; 80048; 80053; 80061; 81003; 83690; 83735; 85025; 93005; 93306; 93880; 94640; 96361; 96372; 96374; 99285; A9270; G0378; J1650; 81001; 83721; 87086

== ENCOUNTER 2021-08-28 07:53 | Outpatient (CLI) | payer MEDICARE, OTHER ==
[2021-08-28 14:14] LABS: BASOPHILS % (AUTO) 0.6 %; EOSINOPHILS # (AUTO) 0.2 10^3/uL (0.0-0.7); EOSINOPHILS % (AUTO) 3.1 %; HCT - HEMATOCRIT 39.1 % (37.0-47.0); HGB - HEMOGLOBIN 12.3 g/dL (12.0-16.0); LYMPHOCYTES # (AUTO) 2.3 10^3/uL (1.5-3.5); LYMPHOCYTES % (AUTO) 35.8 %; MEAN CORPUSCULAR HEMOGLOBIN 30.4 pg (27.0-31.0); MEAN CORPUSCULAR HGB CONC 31.5 g/dL (32.0-36.0); MEAN CORPUSCULAR VOLUME 96.5 fL (81.0-99.0); MEAN PLATELET VOLUME 10.4 fL (7.9-10.8); MONOCYTES # (AUTO) 0.6 10^3/uL (0.0-1.0); MONOCYTES % (AUTO) 8.7 %; NEUTROPHILS # (AUTO) 3.3 10^3/uL (1.5-6.6); NEUTROPHILS % (AUTO) 51.6 %; PLT - PLATELET COUNT 187 10^3/uL (130-450); RED BLOOD COUNT 4.05 10^6/uL (4.20-5.40); RED CELL DISTRIBUTION WIDTH 12.7 % (12.0-15.0); WHITE BLOOD COUNT 6.4 x10^3/uL (4.8-10.8)
[2021-08-28 14:46] LABS: ALBUMIN 4.1 g/dL (3.2-5.5); ALBUMIN/GLOBULIN RATIO 1.6 (1.0-2.2); ALKALINE PHOSPHATASE 48 IU/L (42-121); ALT ALANINE AMINOTRANSFERASE 18 IU/L (10-60); AST ASPARTATE AMINOTRANSFERASE 20 IU/L (10-42); BILIRUBIN,TOTAL 0.7 mg/dL (0.2-1.0); BUN - BLOOD UREA NITROGEN 20 mg/dL (6-20); CALCIUM 9.4 mg/dL (8.5-10.3); CARBON DIOXIDE - CO2 29 mmol/L (21-32); CHLORIDE 104 mmol/L (101-111); CHOL/HDL RATIO 2.7 (<4.4); CHOLESTEROL 238 mg/dL; CREATININE 0.9 mg/dL (0.4-1.0); GFR - MDRD 61 (>89); GLUCOSE 98 mg/dL (70-100); HDL CHOLESTEROL 87 mg/dL; LDL CHOLESTEROL,CALCULATED 138 mg/dL; LDL/HDL RATIO 1.6 (<4.4); POTASSIUM 4.4 mmol/L (3.5-5.0); SODIUM 139 mmol/L (135-145); TOTAL PROTEIN 6.7 g/dL (6.7-8.2); TRIGLYCERIDES 66 mg/dL; VLDL CHOLESTEROL 13 mg/dL
[2021-08-28 14:50] LABS: THYROID STIMULATING HORMONE 2.32 uIU/mL (0.34-5.60)
== END 2021-08-28 07:54 | disposition home or self-care (01) ==
LOC: LAB.S 07:53
PROVIDERS: ATTEND Nurse Practitioner Family
DX: E78.5 Hyperlipidemia, unspecified (principal); I10 Essential (primary) hypertension
CPT/HCPCS: 36415; 80053; 80061; 83721; 84443; 85025

== ENCOUNTER 2022-04-13 11:37 | Outpatient (CLI) | payer MEDICARE, OTHER | END 2022-04-13 11:38 | disposition home or self-care (01) | LOC: LAB 11:37 | PROVIDERS: ATTEND Nurse Practitioner Family | DX: R10.9 Unspecified abdominal pain (principal) | CPT/HCPCS: 36415; 82565 ==

== ENCOUNTER 2022-04-13 11:38 | Outpatient (CLI) | payer MEDICARE, OTHER ==
[2022-04-13] MEDS ORDERED: DIATRIZOATE MEGLU/DIATRIZO SOD 30 ML BOTTLE PO ONE ×2 (11:46→13:47)
[2022-04-13] MEDS ORDERED: iohexoL-300 100 ML VIAL ONE (11:46)
[2022-04-13] MEDS ORDERED: iohexoL-300 100 ML VIAL IVP ONE (13:47)
--- NOTE | 2022-04-13 14:02 | CT Report ---
PROCEDURE: ABDOMEN/PELVIS W INDICATIONS: ABD PAIN CONTRAST: 100ml omni 300 TECHNIQUE: After the administration of IV and oral contrast, 5 mm thick sections acquired from the diaphragms to the symphysis. 5 mm thick coronal and sagittal reformats were acquired. For radiation dose reducti on, the following was used: automated exposure control, adjustment of mA and/or kV according to michelle ent size. COMPARISON: Correlation is made with prior abdominal ultrasound, 09/22/2012 FINDINGS: Image quality: Excellent. ABDOMEN: Lung bases: Lung bases are clear. Heart size is normal. Solid organs: Liver and spleen are normal in size and enhancement. Simple appearing liver cysts are seen. Gallbladder wall does not appear thickened. Biliary system is non dilated. Pancreas enhanc es normally. No adrenal nodules. Kidneys demonstrate normal size and enhancement, without hydroneph rosis. Peritoneum and bowel: Bowel loops demonstrate normal wall thickness and caliber. No free fluid or a ir. There is a moderate amount of stool seen within the colon. The transverse colon is tortuous and low lying. A normal appendix is incidentally noted. Nodes and vessels: No retroperitoneal or mesenteric adenopathy by size criteria. Aorta and inferior vena cava are normal in size. Atherosclerotic calcification is seen. Miscellaneous: No ventral hernias. PELVIS: Genitourinary: Bladder wall thickness is normal. The uterus demonstrates an unremarkable appearance for age. No adnexal masses are seen. Miscellaneous: No inguinal hernias or adenopathy. Bones: No suspicious bony lesions. No vertebral body compression fractures. Moderate dextroconvex scoliosis is seen. There is an L1 vertebral body hemangioma, as on series 6 image 28. IMPRESSION: There is a moderate amount of stool seen within the colon. Please correlate with clinical constipatio n. Negative for aneurysm. Additional findings: Simple appearing liver cysts Moderate dextroconvex scoliosis L1 vertebral body hemangioma Atherosclerotic calcification Normal appendix Reviewed by: Ranjit Fierro MD on 04/13/2022 1:01 PM [place] Approved by: Ranjit Fierro MD on 04/13/2022 1:01 PM [facility] Station ID: [id number]
== END 2022-04-13 11:39 | disposition home or self-care (01) ==
LOC: DI 11:38
PROVIDERS: ATTEND Nurse Practitioner Family
DX: R10.9 Unspecified abdominal pain (principal); K76.89 Other specified diseases of liver; D18.09 Hemangioma of other sites; I70.90 Unspecified atherosclerosis
CPT/HCPCS: 36415; 74177; 82565; Q9963; Q9967

== ENCOUNTER 2022-04-22 09:42 | Outpatient (CLI) | payer MEDICARE, OTHER ==
--- NOTE | 2022-04-22 15:27 | Ultrasound Report ---
PROCEDURE: CT abdomen pelvis 04/13/2022 INDICATIONS: SCREENING FOR CARDIOVASCULAR DISEASE TECHNIQUE: Real time scanning was performed of the aorta and iliac arteries, with image documentatio n. COMPARISON: FINDINGS: Aorta: Proximal aortic diameter measures 2.4 cm. Mid-aorta measures 1.8 cm. Distal aortic diameter is 1.5 cm. Iliac arteries: Right common iliac artery measures 1.0 cm. Left common iliac artery measures 0.9 cm . IMPRESSION: No aneurysmal dilation Reviewed by: Kay Lockhart MD on 04/22/2022 3:26 PM PST Approved by: Kay Lockhart MD on 04/22/2022 3:26 PM PST Station ID: [id number]
== END 2022-04-22 09:43 | disposition home or self-care (01) ==
LOC: DI 09:42
PROVIDERS: ATTEND Nurse Practitioner Family
DX: Z13.6 Encounter for screening for cardiovascular disorders (principal); R10.9 Unspecified abdominal pain

== ENCOUNTER 2022-11-13 08:00 | Emergency (ER) | payer MEDICARE, OTHER ==
[2022-11-13 08:16] VITALS: BP 163/74; O2SAT 98
--- NOTE | 2022-11-13 08:35 | ED Physician Documentation ---
History of Present Illness - Stated complaint Stated Complaint: BLOODY NOSE - Chief complaint Chief Complaint: General - History obtained from History obtained from: Patient - History of Present Illness Timing: How many weeks ago (1) - Additonal information Additional information: Patient is a 76-year-old female that 1 week ago went to the walk-in clinic for a nosebleed. She had a Rhino Rocket placed. She has not been able to see ENT. Says she came here for packing removal. No fevers. No chills. No further nosebleeds. She is not anticoagulated. Currently asymptomatic. Review of Systems Constitutional: denies: Fever, Chills, Myalgias GI: denies: Vomiting, Diarrhea Skin: denies: Rash Musculoskeletal: denies: Neck pain, Back pain Neurologic: denies: Headache PD PAST MEDICAL HISTORY - Past Medical History Past Medical History: Yes Cardiovascular: Hypertension Respiratory: COPD, Sleep apnea Neuro: TIA Endocrine/Autoimmune: None : Incontinence, Frequency Psych: Depression, Anxiety Musculoskeletal: Chronic back pain Derm: None - Past Surgical History Ortho: Knee replacement - Present Medications Home Medications: Ambulatory Orders Medication Instructions Recorded Confirmed Acetaminophen 500 mg PO TID PRN 03/12/19 03/12/19 Albuterol Sulfate [Albuterol 1 - 2 puffs PO Q4HR PRN 03/12/19 03/12/19 Sulfate Hfa] Citalopram [CeleXA] 20 mg PO DAILY 03/12/19 03/12/19 hydroCHLOROthiazide 12.5 mg PO DAILY 03/12/19 03/12/19 [Hydrochlorothiazide] lisinopriL [Lisinopril] 20 mg PO QPM 03/12/19 03/12/19 - Allergies Allergies/Adverse Reactions: Allergies Allergy/AdvReac Type Severity Reaction Status Date / Time hydrocodone Allergy Hives Verified 03/12/19 11:54 - Social History Does the pt smoke?: No Smoking Status: Never smoker - POLST POLST Status: Full Code PD ED PE NORMAL - Vitals Vital signs reviewed: Yes - General General: Alert and oriented X 3, No acute distress - HEENT HEENT: Moist mucous membranes, Other (Nasal packing removed from left nare Rhino Rocket in left nare. No bleeding) - Neck Neck: Supple, no meningeal sign - Cardiac Cardiac: RRR, Strong equal pulses - Respiratory Respiratory: No respiratory distress, Clear bilaterally - Abdomen Abdomen: Soft, Non tender, Non distended - Derm Derm: Warm and dry - Neuro Neuro: Alert and oriented X 3 - Psych Psych: Normal mood, Normal affect Results - Vitals Vitals: Vital Signs - 24 hr 11/13/22 08:10 Temperature 37.1 C Heart Rate 92 Respiratory 20 Rate Blood Pressure 163/74 H O2 Saturation 98 Oxygen O2 Source Room air PD Medical Decision Making - ED course Complexity details: considered differential, d/w patient ED course: Rhino Rocket was removed. Tolerated well. No bleeding. We will have her follow-up with ENT as scheduled. She will return if she worsens. Patient counseled regarding signs and symptoms for which I believe and urgent re- evaluation would be necessary. Patient with good understanding of and agreement to plan and is comfortable going home at this time This document was made in part using voice recognition software. While efforts are made to proofread this document, sound alike and grammatical errors may occur. Departure - Departure Disposition: 01 Home, Self Care Clinical Impression: Encounter for removal of nasal pack Condition: Good Instructions: ED Nosebleed Follow-Up: Your,doctor as needed [Other] Comments: Your nasal packing was removed today. Please follow-up with ENT as scheduled. Please return if you worsen. Do not blow or place anything in your nose for the next 24 hours.
--- OUTSIDE RECORDS SUMMARY | 2022-11-13 08:42 | EXTERNAL MEDICAL SUMMARY RPT | Continuity of Care Document ---
Author Name Unknown Address [address] [place] [address] Phone Organization [facility] [address] [place] [address] Phone Care Team Providers Care Sourcing Analyst Name Role Phone Unavailable Unavailable Unavailable Raymond Cruz Md Unavailable Unavailable Demetrio Patient Registrar Ii, Ruby Unavailab le Unavailable Allergies and Intolerances date description facility reaction severity Medications date description facility 2022-11-06 00:00 lisinopril [facility] 2022-11-07 00:00 lisinopril [facility] 2022-11-06 00:00 omeprazole [facility] 2022-11-07 00:00 omeprazole [facility] 2022-11-06 00:00 citalopram [facility] 2022-11-07 00:00 citalopram [facility] 2022-11-06 00:00 lisinopril [facility] 2022-11-07 00:00 lisinopril [facility] 2022-11-06 00:00 erythromycin [facility] 2022-11-07 00:00 erythromycin [facility] 2022-11-06 00:00 erythromycin [facility] 2022-11-07 00:00 erythromycin [facility] 2022-11-06 00:00 lisinopril [facility] 2022-11-07 00:00 lisinopril [facility] 2022-11-06 00:00 omeprazole [facility] 2022-11-07 00:00 omeprazole [facility] 2022-11-06 00:00 citalopram [facility] 2022-11-07 00:00 citalopram [facility] 2022-11-06 00:00 citalopram [facility] 2022-11-07 00:00 citalopram [facility] 2022-11-06 00:00 citalopram [facility] 2022-11-07 00:00 citalopram [facility] 2022-11-06 00:00 lisinopril [facility] 2022-11-07 00:00 lisinopril [facility] 2022-11-06 00:00 omeprazole [facility] 2022-11-07 00:00 omeprazole [facility] 2022-11-06 00:00 omeprazole [facility] 2022-11-07 00:00 omeprazole [facility] 2022-11-06 00:00 erythromycin [facility] 2022-11-07 00:00 erythromycin [facility] 2022-11-06 00:00 erythromycin [facility] 2022-11-07 00:00 erythromycin [facility] Problems date description facility 2022-11-06 00:00 No current problems or disability - unknown [facility] 2022-11-06 00:00 Anterior epistaxis [facility] 2022-11-06 00:00 Epistaxis [facility] Procedures date description facility 2022-11-06 00:00 Visit Code Hold [facility] Social History date description facility 2022-11-06 00:[address] [facility] 2022-11-06 00:00 Unknown if ever smoked [facility] Vital Signs date measurement value units 2022-11-06 00:00 BMI 19.29 kg/m2 2022-11-06 00:00 BP_diastolic 76 mmHg 2022-11-06 00:00 BP_systolic 152 mmHg 2022-11-06 00:00 heart_rate 82 /min 2022-11-06 00:00 height_metric 162.56 cm 2022-11-06 00:00 height_standard 64 in 2022-11-06 00:00 respiration_rate 16 /min 2022-11-06 00:00 temperature_metric 36.28 C 2022-11-06 00:00 temperature_standard 97.3 F 2022-11-06 00:00 weight_metric 50.8 kg 2022-11-06 00:00 weight_standard 112 lb
== END 2022-11-13 08:41 | disposition home or self-care (01) ==
LOC: ED 08:00
DX: Z48.00 Encounter for change or removal of nonsurgical wound dressing (principal); I10 Essential (primary) hypertension; J44.9 Chronic obstructive pulmonary disease, unspecified; Z79.899 Other long term (current) drug therapy
CPT/HCPCS: 99281; 99283